=== PATIENT | female | born 2000 | race Caucasian/White ===

== ENCOUNTER 2021-12-26 16:20 | Outpatient (CLI) | payer BC, SELFPAY ==
[2021-12-26 23:25] LABS: Chlamydia DNA Amplified* NOT DETECTED (No Detected); GC DNA Amplified* NOT DETECTED (No Detected)
== END 2021-12-26 16:21 | disposition home or self-care (01) ==
LOC: LKVREF 16:21
PROVIDERS: Visit Provider Nurse Practitioner Family
DX: N89.8 Other specified noninflammatory disorders of vagina (principal)
CPT/HCPCS: 87491; 87591

== ENCOUNTER 2023-06-10 17:26 | Outpatient (CLI) | payer OTHER, SELFPAY ==
[2023-06-10 23:19] LABS: Chlamydia DNA Amplified* NOT DETECTED (No Detected); GC DNA Amplified* NOT DETECTED (No Detected)
== END 2023-06-10 17:27 | disposition home or self-care (01) ==
LOC: LKVREF 17:55
PROVIDERS: PCP Student in an Organized Health Care Education/Training Program; Visit Provider Physician Assistant
DX: N89.8 Other specified noninflammatory disorders of vagina (principal)
CPT/HCPCS: 87491; 87591

== ENCOUNTER 2023-11-04 18:35 | Outpatient (CLI) | payer OTHER, SELFPAY | END 2023-11-04 18:36 | disposition home or self-care (01) | LOC: NFLDREF 11-05 08:40 | PROVIDERS: Visit Provider Physician Assistant | DX: Z11.3 Encounter for screening for infections with a predominantly sexual mode of transmission (principal) | CPT/HCPCS: 87491; 87591 ==